=== PATIENT | female | born 1995 | race American Indian/Alaskan Native ===

== ENCOUNTER 2018-12-07 14:24 | Emergency (ER) | payer OTHER ==
[2018-12-07] MEDS ORDERED: IBUPROFEN PO ONE (15:10)
--- NOTE | 2018-12-07 15:13 | Emergency Department Report ---
- General Chief Complaint: Upper Respiratory Infection Stated Complaint: FLU LIKE Time Seen by Provider: 12/07/18 14:40 Source: patient Mode of arrival: Ambulatory Limitations: No Limitations - History of Present Illness Initial Comments: 23-year-old -[place] female comes to the emergency room complaining of cold and flulike symptoms for the last 3-4 days. Patient reports she has no relief with TheraFlu or [place] multiple formula. Patient complains of body aches and headache. MD Complaint: cough, sore throat, rhinorrhea, nasal congestion, other (sneezing) -: days(s) (3-4 days) Severity scale (0 -10): 8 Consistency: constant Improves With: OTC cold medicine Context: sick contacts (son had flu 2 weeks ago.) Associated Symptoms: myalgias, headache, rhinorrhea, nasal congestion, sore throat, cough. denies: fever, chills Treatments Prior to Arrival: "cold medicine" - Related Data Previous Rx's Medication Instructions Recorded Last Taken Type Cetirizine HCl [Zyrtec] 10 mg PO QDAY #14 tablet 12/07/18 Unknown Rx Fluticasone [Flonase] 1 spray NS QDAY #1 bottle 12/07/18 Unknown Rx Ibuprofen [Motrin 600 MG tab] 600 mg PO Q8H PRN #15 tablet 12/07/18 Unknown Rx Allergies Allergy/AdvReac Type Severity Reaction Status Date / Time amoxicillin Allergy Rash Verified 12/07/18 14:28 ED Review of Systems ROS: Stated complaint: FLU LIKE Other details as noted in HPI Comment: All other systems reviewed and negative ENT: throat pain, congestion, other (rhinorrhea, sneezing) Respiratory: cough Gastrointestinal: denies: abdominal pain, nausea, diarrhea Genitourinary: denies: urgency, dysuria, discharge ED Past Medical Hx - Past Medical History Previous Medical History?: Yes Additional medical history: childbirth - Surgical History Past Surgical History?: No - Social History Smoking Status: Former Smoker Substance Use Type: Alcohol, Marijuana - Medications Home Medications: Home Medications Medication Instructions Recorded Confirmed Last Taken Type Cetirizine HCl [Zyrtec] 10 mg PO QDAY #14 tablet 12/07/18 Unknown Rx Fluticasone [Flonase] 1 spray NS QDAY #1 bottle 12/07/18 Unknown Rx Ibuprofen [Motrin 600 MG tab] 600 mg PO Q8H PRN #15 tablet 12/07/18 Unknown Rx ED Physical Exam - General Limitations: No Limitations General appearance: alert, in no apparent distress - Head Head exam: Present: atraumatic, normocephalic - Eye Eye exam: Present: normal appearance - ENT ENT exam: Present: mucous membranes moist - Expanded ENT Exam Expanded Throat exam: Negative: tonsillar erythema, tonsillomegaly, tonsillar exudate - Neck Neck exam: Present: normal inspection, full ROM. Absent: tenderness, lymphadenopathy - Respiratory Respiratory exam: Present: normal lung sounds bilaterally. Absent: respiratory distress - Cardiovascular Cardiovascular Exam: Present: regular rate, normal rhythm. Absent: systolic murmur, diastolic murmur, rubs, gallop - GI/Abdominal GI/Abdominal exam: Present: soft, normal bowel sounds - Extremities Exam Extremities exam: Present: normal inspection - Back Exam Back exam: Present: normal inspection - Neurological Exam Neurological exam: Present: alert, oriented X3 - Psychiatric Psychiatric exam: Present: normal affect, normal mood - Skin Skin exam: Present: warm, dry, intact, normal color. Absent: rash ED Course Vital Signs 12/07/18 14:28 Temperature 98.1 F Pulse Rate 75 Respiratory 20 Rate Blood Pressure 105/61 O2 Sat by Pulse 100 Oximetry ED Medical Decision Making - Medical Decision Making Patient has been evaluated by this provider in fast track. Patient comes in for URI I symptoms 3-4 days. Patient has past duration of Tamiflu to be effective. We'll discharge patient home on Zyrtec's, Flonase, ibuprofen, Tessalon Perles. Patient is to follow up with the primary care provider if her symptoms persist or gets worse. Critical care attestation.: If time is entered above; I have spent that time in minutes in the direct care of this critically ill patient, excluding procedure time. ED Disposition Clinical Impression: Viral syndrome Disposition: DC-01 TO HOME OR SELFCARE Is pt being admited?: No Does the pt Need Aspirin: No Condition: Stable Instructions: Viral Syndrome (ED) Additional Instructions: As we discussed, symptoms most likely coming from cold/virus infection. These typically do not get antibiotics. Patient can have ibuprofen every 6 hours, alternated with acetaminophen every 4 hours. Patient may not want to eat as much as normal, and this is expected. Patient should follow-up with her primary care provider within 3-5 days. Return to the ER right away with lethargy, irritability, change in mental status, projectile vomiting, inability to tolerate liquids. Please take medication as prescribed. Prescriptions: Cetirizine HCl [Zyrtec] 10 mg PO QDAY #14 tablet Fluticasone [Flonase] 1 spray NS QDAY #1 bottle Ibuprofen [Motrin 600 MG tab] 600 mg PO Q8H PRN #15 tablet PRN Reason: Pain , Severe (7-10) Referrals: [facility] [Provider Group] - 3-5 Days Forms: Work/School Release Form(ED)
[2018-12-08 14:13] VITALS: BP 105/61
== END 2018-12-07 16:09 | disposition home or self-care (01) ==
LOC: ED 14:24
DX: J06.9 Acute upper respiratory infection, unspecified (principal); B34.9 Viral infection, unspecified; M79.10 Myalgia, unspecified site; Z88.1 Allergy status to other antibiotic agents; Z87.891 Personal history of nicotine dependence
CPT/HCPCS: 99282